=== PATIENT | male | born 1980 | race Caucasian/White ===

== ENCOUNTER 2017-10-03 12:50 | Emergency (ER) ==
[2017-10-03 12:59] VITALS: BP 146/91; TEMP 98.4; BMI 25.9
--- NOTE | 2017-10-03 13:34 | DI ---
EXAM: Chest two view, frontal and lateral views. HISTORY: Cough. COMPARISON: None available. FINDINGS: The heart size is normal. There is no pulmonary vascular congestion. The lungs are clear . No pleural effusion or pneumothorax is seen. No acute osseous abnormality identified. IMPRESSION: No acute cardiopulmonary process.
--- NOTE | 2017-10-03 13:51 | ED.PDOC ---
General ED Provider: Dr. JAMAAL RHODES Chief Complaint: Cough Stated Complaint: cough Time Seen by Physician: 13:00 Mode of Arrival: Walk-In Information Source: Patient Exam Limitations: No limitations Nursing and Triage Documentation Reviewed and Agree: Yes Reviewed sepsis parameters & appropriate labs ordered?: Yes System Inflammatory Response Syndrome: Not Applicable (7574) Sepsis Protocol: For patient's 13 years and over: Temp is 96.8 and below OR 101 and greater Pulse >90 BPM Resp >20/minute Acutely Altered Mental Status Are patient's symptoms suggestive of a new infection, such as: -Pneumonia -Skin, Soft Tissue -Endocarditis -UTI -Bone, Joint Infection -Implantable Device -Acute Abdominal Infection -Wound Infection -Meningitis -Blood Stream Catheter Infection -Unknown Respiratory Complaint Exam - Respiratory Complaint/Exam Onset/Duration: 1week Symptoms Are: Still present Timing: Intermittent Initial Severity: Moderate Current Severity: Moderate Location: Throat, Chest Character: Reports: Non-productive cough Aggravating: Reports: None Alleviating: Reports: None Associated Signs and Symptoms: Reports: Nasal congestion Related History: Reports: Similar episode History of Healthcare-Acquired Pneumonia: No Related Surgical History: Reports: None Pulmonary Embolism Risk Factors: None Cardiac Risk Factors: Reports: None Pseudomonas Risk Factors: Reports: None Tuberculosis Risk Factors: Reports: None Status Asthmaticus Risk Factors: Reports: None Home Oxygen Use: No Recent Stress Test: No Recent Echo/LV Function: No Current Antibiotic Use: No Current Asthma Medication Use: No Respiratory Distress: None Inadequate Respiratory Effort: No Dysphagia Present: No Stridor Present: No JVD Present: No Accessory Muscle Use: No Retractions: Not Present Diminished Breath Sounds: No Prolonged Respiration: Expiratory phase Grunting Respirations: No Kussmaul Respirations: No Differential Diagnoses: Pneumonia, Bronchitis Review of Systems - Review Of Systems Constitutional: Reports: Malaise Eyes: Reports: No symptoms Ears, Nose, Mouth, Throat: Reports: No symptoms Respiratory: Reports: Cough, Wheezing Cardiac: Reports: No symptoms GI: Reports: No symptoms : Reports: No symptoms Musculoskeletal: Reports: No symptoms Skin: Reports: No symptoms Neurological: Reports: No symptoms Endocrine: Reports: No symptoms Hematologic/Lymphatic: Reports: No symptoms All Other Systems: Reviewed and Negative Past Medical History - Past Medical History Previously Healthy: Yes Endocrine: Reports: None Cardiovascular: Reports: None Respiratory: Reports: None Hematological: Reports: None Gastrointestinal: Reports: None Genitourinary: Reports: None Neuro/Psych: Reports: None Musculoskeletal: Reports: None Cancer: Reports: None - Surgical History General Surgical History: Reports: None - Family History Family History: Reports: None - Social History Smoking Status: Never smoker Hx Substance Use: No Alcohol Screening: Occasionally Physical Exam - Physical Exam Appearance: Well-appearing, No pain distress, Well-nourished Eyes: KAROL, EOMI, Conjunctiva clear ENT: Ears normal, Nose normal, Oropharynx normal Respiratory: Airway patent, Breath sounds clear, Breath sounds equal, Respirations nonlabored Cardiovascular: RRR, Pulses normal, No rub, No murmur GI/: Soft, Nontender, No masses, Bowel sounds normal, No Organomegaly Musculoskeletal: Normal strength, ROM intact, No edema, No calf tenderness Skin: Warm, Dry, Normal color Neurological: Sensation intact, Motor intact, Reflexes intact, Cranial nerves intact, Alert, Oriented Psychiatric: Affect appropriate, Mood appropriate Interpretation - Radiology Interpretation Radiology Interpretation By: Radiologist Radiology Results: No acute changes Critical Care Note - Critical Care Note Total Time (mins): 0 Course - Course Orders, Labs, Meds: Orders Category Date Time Status CHEST, 2 VIEWS PA & LAT Stat RADS 10/03/17 13:13 Completed Vital Signs: Temp Pulse Resp BP Pulse Ox 10/03/17 12:53 98.4 F 99 H 18 146/91 H 97 Departure - Departure Time of Disposition: 13:50 Disposition: HOME SELF-CARE Discharge Problem: Cough, Bronchitis Instructions: Bronchospasm (ED), Wheezing (ED), Acute Bronchitis (ED), How Your Lungs Work (ED) Condition: Good Pt referred to PMD for follow-up: Yes Additional Instructions: Please call your Family Physician as soon as possible to schedule a follow-up appointment. Allergies/Adverse Reactions: Allergies No Known Allergies Allergy (Unverified 10/03/17 12:52) Home Medications: Ambulatory Orders 1 [No Reported Medications] 10/03/17
== END 2017-10-03 14:35 | disposition home or self-care (01) ==
LOC: ED 12:50
DX: J40 Bronchitis, not specified as acute or chronic (principal)
CPT/HCPCS: 99282

== ENCOUNTER 2018-10-16 14:58 | Emergency (ER) ==
[2018-10-16 14:58] VITALS: BMI 25.9
[2018-10-16 15:01] VITALS: BP 157/94; TEMP 98.8
[2018-10-16] MEDS ORDERED: DUONEB NEB STA (15:20)
--- NOTE | 2018-10-16 15:25 | ED.PDOC ---
General ED Provider: Dr. JAMAAL RHODES Chief Complaint: Cough Stated Complaint: cough, chills , Time Seen by Physician: 15:00 Mode of Arrival: Walk-In Information Source: Patient Exam Limitations: No limitations Nursing and Triage Documentation Reviewed and Agree: Yes Does patient meet sepsis criteria?: No System Inflammatory Response Syndrome: Not Applicable Sepsis Protocol: For patient's 13 years and over: Temp is 96.8 and below OR 101 and greater Pulse >90 BPM Resp >20/minute Acutely Altered Mental Status Are patient's symptoms suggestive of a new infection, such as: -Pneumonia -Skin, Soft Tissue -Endocarditis -UTI -Bone, Joint Infection -Implantable Device -Acute Abdominal Infection -Wound Infection -Meningitis -Blood Stream Catheter Infection -Unknown EENT Complaint Exam - Throat Complaint/Exam Symptoms Are: Still present Timimg: Intermittent Initial Severity: Mild Current Severity: Mild Aggravating: Reports: None Alleviating: Reports: None Associated Signs and Symptoms: Reports: Cough, Nasal congestion Uvula Midline: Yes Sara-tonsillar Fluctuence: No Scarlatinaform Rash Present: No Lesions: Absent: Lip, Gums, Tongue, Buccal Mucosa, Pharynx Exanthem: Absent: Lip, Gums, Tongue, Buccal Mucosa, Pharynx Stridor Present: No Sinus Tenderness Present: No Tonsillar Hypertrophy Present: No Tonsillar Exudate Present: No Sara-tonsillar Swelling Present: No Adenopathy Present: No Splenomegaly Present: No Differential Diagnoses: Pharyngitis Review of Systems - Review Of Systems Constitutional: Reports: No symptoms Eyes: Reports: No symptoms Ears, Nose, Mouth, Throat: Reports: No symptoms Respiratory: Reports: Cough Cardiac: Reports: No symptoms GI: Reports: No symptoms : Reports: No symptoms Musculoskeletal: Reports: No symptoms Skin: Reports: No symptoms Neurological: Reports: No symptoms Endocrine: Reports: No symptoms Hematologic/Lymphatic: Reports: No symptoms All Other Systems: Reviewed and Negative Past Medical History - Past Medical History Previously Healthy: Yes Endocrine: Reports: None Cardiovascular: Reports: None Respiratory: Reports: None Hematological: Reports: None Gastrointestinal: Reports: None Genitourinary: Reports: None Neuro/Psych: Reports: None Musculoskeletal: Reports: None Cancer: Reports: None - Surgical History General Surgical History: Reports: None - Family History Family History: Reports: None - Social History Smoking Status: Never smoker Hx Substance Use: No Alcohol Screening: Occasionally - Immunizations Tetanus Shot up to Date: No Physical Exam - Physical Exam Appearance: Well-appearing, No pain distress, Well-nourished Eyes: KAROL, EOMI, Conjunctiva clear ENT: Erythema Respiratory: Airway patent, Breath sounds clear, Breath sounds equal, Respirations nonlabored Cardiovascular: RRR, Pulses normal, No rub, No murmur GI/: Soft, Nontender, No masses, Bowel sounds normal, No Organomegaly Musculoskeletal: Normal strength, ROM intact, No edema, No calf tenderness Skin: Warm, Dry, Normal color Neurological: Sensation intact, Motor intact, Reflexes intact, Cranial nerves intact, Alert, Oriented Psychiatric: Affect appropriate, Mood appropriate Critical Care Note - Critical Care Note Total Time (mins): 0 Course - Course Orders, Labs, Meds: Orders Category Date Time Status NEBULIZER TREATMENT Stat CARDIO 10/16/18 15:20 Ordered FLU A/B MOLECULAR Stat LAB 10/16/18 15:20 Uncollected MOLECULAR GROUP A STREP Stat LAB 10/16/18 15:20 Uncollected Ipratropium/Albuterol Neb [Duoneb] MEDS 10/16/18 15:20 Stat 1 vial NEB ONCE STA CHEST, 2 VIEWS PA & LAT Stat RADS 10/16/18 15:20 Ordered Medications Discontinued Medications Generic Name Dose Route Start Last Admin Trade Name Daljit PRN Reason Stop Dose Admin Albuterol/Ipratropium 1 vial 10/16/18 15:20 Duoneb NEB 10/16/18 15:21 ONCE STA Vital Signs: Temp Pulse Resp BP Pulse Ox 10/16/18 14:58 98.8 F 102 H 18 157/94 H 95 Departure - Departure Time of Disposition: 16:00 Disposition: HOME SELF-CARE Discharge Problem: Cough, Bronchitis, Viral syndrome Instructions: Viral Syndrome (ED) Condition: Good Pt referred to PMD for follow-up: Yes IPMP verified?: No Additional Instructions: Please call your Family Physician as soon as possible to schedule a follow-up appointment. Allergies/Adverse Reactions: Allergies No Known Allergies Allergy (Unverified 10/16/18 15:01) Home Medications: Ambulatory Orders 1 [No Reported Medications] 10/03/17
--- NOTE | 2018-10-16 16:10 | DI ---
EXAM: Two views of the chest. History: Cough. Comparison: Chest radiograph 10/03/2017 Findings: Heart size is within normal limits. No focal consolidation. No appreciable pleural fluid and no pneumothorax. No acute osseous abnormalities. Impression: No acute cardiopulmonary process
== END 2018-10-16 16:40 | disposition home or self-care (01) ==
LOC: ED 14:58
DX: J40 Bronchitis, not specified as acute or chronic (principal); B34.9 Viral infection, unspecified
CPT/HCPCS: 87502; 87651; 99283